=== PATIENT | female | born 1995 | race Caucasian/White ===

== ENCOUNTER → 2017-12-30 | Outpatient (CLI) | payer OTHER ==
[~2017-12-30] MED LIST: GADOBENATE 529MG/1ML 15ML VIAL IVP ONE
--- NOTE | 2017-12-30 15:32 | RADIOLOGY IMAGING REPORT ---
FACILITY: [facility] [place] PATIENT NAME: Magui Kingsley : 1995 MR: [id number] V: [id number] EXAM DATE: ORDERING PHYSICIAN: [facility] TECHNOLOGIST: Location: [facility] Patient: Magui Kingsley : 1995 Visit/Account:[id number] Date of Sevice: 12/30/2017 Study: MRI of the brain without and with gadolinium contrast. Indication: Left-sided migraines; numbness of right side of face and right upper extremity Comparison study: None Contrast used: 14 mL MultiHance gadolinium contrast Technique: Multiplanar MRI sequences were obtained through the brain before and after the administrat ion of gadolinium contrast. The examination demonstrates no evidence of acute intracranial hemorrhage. There is no evidence of ex tra-axial collection or hydrocephalus. There is no abnormal signal identified within the brain parenchyma. The pituitary gland is unremarkable in appearance. There is no evidence of abnormality of the pineal gland. A diffusion-weighted sequence was performed and demonstrates no evidence of active ischemia. There is no evidence of active infarct The orbits are unremarkable. The paranasal sinuses are unremarkable Following the administration of gadolinium contrast, there is no abnormal intracranial contrast enhan cement. IMPRESSION:Unremarkable MRI of the brain without and with intravenous contrast. Report Dictated By: Vinnie Garces at 12/30/2017 3:27 PM Report E-Signed By: Vinnie Garces at 12/30/2017 3:29 PM WSN:[id number]
== END ==
LOC: MRI 01:25
PROVIDERS: ATTEND Psychiatry & Neurology Neurology
DX: G43.119 Migraine with aura, intractable, without status migrainosus (principal)
CPT/HCPCS: 70553; A9577

== ENCOUNTER 2018-05-05 02:50 | Day surgery (SDC) | payer OTHER ==
[~2018-05-05] VITALS: Ht 172.7 cm; Wt 68.0 kg
[~2018-05-05 02:50] MED LIST changes: +AMOX500T10 PO; +ETON68IM SQ; -GADOBENATE 529MG/1ML 15ML VIAL IVP ONE; +ZONI25CA PO
[2018-05-05 11:20] VITALS: BP 117/85
[2018-05-05] MEDS ORDERED: HYDROmorphone HCL 2 MG/ML SDV ONE (11:54)
[2018-05-05] MEDS ORDERED: ONDANSETRON 4 MG/2 ML VIAL ONE (11:54)
[2018-05-05] MEDS ORDERED: PROPOFOL EMUL(*) 10MG/ML 20 ML 20 ML ONE (11:54)
[2018-05-05] MEDS ORDERED: DEXAMETHASONE SOD PHOS 10MG/ML ONE (11:54)
[2018-05-05] MEDS ORDERED: FAMOTIDINE 20 MG TAB PO ONE (12:05)
[2018-05-05] MEDS ORDERED: MIDAZOLAM 2 MG/2 ML VIAL IVP PRN (12:05)
[2018-05-05] MEDS ORDERED: ceFAZolin(*) 2GM/D5W 50ML 50 ML IVPB ONE (12:05)
[2018-05-05] MEDS ORDERED: NORMOSOL R SOLN(*) 1000 ML BAG 1,000 ML IV PRN (12:05)
[2018-05-05] MEDS ORDERED: LIDOCAINE/SOD BICARB 8.4% SYR ID ONE (12:05)
--- NOTE | 2018-05-05 12:42 | OPERATIVE REPORT 1 ---
EVENT DATE: May 05, 2018 SURGEON: Michele Graf MD ANESTHESIOLOGIST: Felipe Lockhart MD ANESTHESIA: LMA. PROCEDURE PERFORMED Tonsillectomy. PREOPERATIVE DIAGNOSIS Chronic tonsillitis. POSTOPERATIVE DIAGNOSIS Chronic tonsillitis. INDICATIONS Please refer to the preoperative note. DESCRIPTION OF PROCEDURE The patient was positively identified in the preoperative area. She was accompanied there by her parents. Risks and benefits were explained including, but not limited to, bleeding, infection and those associated with anesthesia. She acknowledged understanding of those risks. She was then brought back to the operating room, laid supine on the operating table and anesthesia was administered. Once asleep, the patient was positioned, prepped and draped in the usual sterile fashion. A McIvor Mouth Gag was placed in the patient's oral cavity. Red rubber catheter was placed through the right nostril and utilized to suspend the soft palate. The patient was noted to have 3+ tonsils bilaterally. The right tonsil was grasped with curved Allis forceps and carefully dissected from the lateral pharyngeal wall with Bovie electrocautery. In a similar fashion, the contralateral tonsil was removed. Hemostasis was further obtained with suction Bovie electrocautery. The patient was then returned to Anesthesia for emergence. ESTIMATED BLOOD LOSS 25 cc. COMPLICATIONS No complications. MTDD
[2018-05-05] MEDS ORDERED: AMOX500T10 PO (12:53)
[2018-05-05] MEDS ORDERED: LIDO15SO2 PO (12:55)
[2018-05-05] MEDS ORDERED: OXYC-373 PO (12:56)
[2018-05-05 13:33] VITALS: BP 126/90
[2018-05-05 14:06] VITALS: BP 126/90
[2018-05-05 14:29] VITALS: BP 113/85
[2018-05-05 14:30] VITALS: BP 106/77
== END 2018-05-05 13:33 | disposition home or self-care (01) ==
LOC: OR 02:50
PROVIDERS: ATTEND Otolaryngology
DX: J03.91 Acute recurrent tonsillitis, unspecified (principal)
CPT/HCPCS: 42826; 81025; 88304; J1100; J1170; J2250; J2405; J2704; J0690